=== PATIENT | female | born 1985 | race African-American/Black ===

== ENCOUNTER 2020-05-23 09:30 | Inpatient (IN) ==
[2020-05-23] MEDS ORDERED: ONDANSETRON 4 MG/2 ML VIAL IV STA (09:57)
[2020-05-23] MEDS ORDERED: methylPREDNISolone SOD SUC 125 MG/2 ML VIAL IV STA (09:57)
[2020-05-23] MEDS ORDERED: AZITHROMYCIN INJ 500 MG in SODIUM CHLORIDE 0.9% 250 ML IV STA (09:57)
[2020-05-23] MEDS ORDERED: VANCOMYCIN INJ 1,000 MG in SODIUM CHLORIDE 0.9% 250 ML IV STA (10:26)
[2020-05-23 10:31] LABS: PT Patient Result 10.9 SECS (9.8-11.9); Partial Thromboplastin Time 22.4 SECS (23.9-33.8)
[2020-05-23 10:43] LABS: Alanine Aminotransferase 33 U/L (13-56); Albumin 2.3 G/DL (3.4-5.0); Alkaline Phosphatase 77 U/L (45-117); Aspartate Amino Transferase 65 U/L (0-37); Blood Urea Nitrogen 19 MG/DL (7-18); Calcium 7.8 MG/DL (8.5-10.1); Estimated Glom Filtration Rate 97 ML/MIN; Ferritin 11.1 ng/ml (8-252); Glucose 105 MG/DL (74-106); Osmolality,Calculated 263.7 MOS/KG (273-304); Total Protein 7.2 G/DL (6.4-8.3); Troponin I < 0.015 NG/ML (0.00-0.045)
[2020-05-23 10:55] LABS: Basophils # 0.1 10*3/uL (0.0-0.2); Basophils % 0.3 % (0.0-0.8); Eosinophils % 0.1 % (0.00-10.9); Hematocrit 32.5 VOL% (35.7-47.0); Immature Granulocytes Absolute 1.13 #; Lymphocytes # 2.7 10*3/uL (1.4-4.0); Lymphocytes % 12.1 % (21.3-54.2); Mean Corpuscular HGB Conc 24.9 GM/DL (32-36); Mean Corpuscular Volume 63.6 FL (87-102); Mean Platelet Volume 9.4 FL (9.6-12.0); Monocytes % 6.6 % (1.7-12.7); NRBC # 2.07 10*3/uL; Neutrophils % 75.9 % (38.7-73.9); Platelet Count 303 T/CUMM (130-400); Red Blood Count 5.11 MC/CUMM (3.8-5.5); Red Cell Distribution Width 24.3 % (9.3-17.3); White Blood Count 22.6 T/CUMM (4-12)
[2020-05-23 10:56] LABS: Hemoglobin 8.1 GM/DL (12.0-16.0)
[2020-05-23 11:03] LABS: Band Neutrophils 1 % (0-10); Lymphocytes 5 % (20-55); Myelocytes 1 %; Nucleated Red Blood Cells 14 (0-5); Segmented Neutrophils 91 % (50-85); Total Cells Counted 100
[2020-05-23 11:04] LABS: Hypochromasia 2+; Microcytosis 2+; Polychromasia Slight
[2020-05-23 11:05] LABS: Ovalocytes Few; Platelet Estimate Normal
[2020-05-23] MEDS ORDERED: ONDANSETRON 4 MG/2 ML VIAL IV PRN (11:44)
[2020-05-23] MEDS ORDERED: LACTULOSE 20 GM/30 ML UDCUP PO PRN (11:44)
[2020-05-23 11:50] LABS: Bacteria,Urine Moderate /HPF (Few); Bilirubin,Urine Negative (Negative); Blood, Urine Large mg/dL (Negative); Glucose,Urine (UA) Negative (Negative); Hyaline Casts,Urine 8 /LPF (0-3); Ketones,Urine Negative (Negative); Mucus,Urine Occasional /LPF (Occasional); Nitrite,Urine Negative (Negative); Protein,Urine 100 MG/DL; RBC,Urine 92 /HPF (0-4); Urine Appearance CLOUDY (Clear); Urine Specific Gravity 1.016 (1.001-1.035); Urine Urobilinogen < 2.0 EU/DL (0.2-1.0); WBC,Urine 12 /HPF (0-6)
[2020-05-23 11:54] LABS: Urine Color Yellow (Yellow)
[2020-05-23 11:55] LABS: Barbiturates Screen,Urine Negative (Negative); Benzodiazepines Screen,Urine Negative (Negative); Cannabinoid Screen,Urine Negative (Negative); Opiate Screen,Urine Negative (Negative); Phencyclidine Screen,Urine Negative (Negative)
[2020-05-23] MEDS ORDERED: AZITHROMYCIN INJ 500 MG in SODIUM CHLORIDE 0.9% 250 ML IV SCH (12:00)
[2020-05-23] MEDS ORDERED: cefTRIAXone 1,000 MG in SODIUM CHLORIDE 0.9% 100 ML IV SCH (12:00)
[2020-05-23] MEDS ORDERED: SODIUM CHLORIDE 0.9% 1,000 ML IV SCH (12:00)
[2020-05-23] MEDS ORDERED: POTASSIUM CHLORIDE 20 MEQ TABLET PO PRN (12:33)
[2020-05-23] MEDS ORDERED: MAGNESIUM SULF RIDER 4 GM in PREMIX 1 EACH IV PRN (12:33)
[2020-05-23] MEDS ORDERED: MAGNESIUM SULF RIDER 2 GM in PREMIX 1 EACH IV PRN (12:33)
[2020-05-23 14:36] LABS: ABG Base Excess 0.9 MMOL/L (-2.5-2.5); ABG HCO3 25.1 MMOL/L (20-26); ABG Oxygen Saturation 88.7 % (95-100); ABG PCO2 39.3 MM HG (35-48); ABG PH 7.419 (7.35-7.45); ABG PO2 59.2 MM HG (80-95); ABG TCO2 23.6 MMOL/L (23-27)
[2020-05-23] MEDS: ENOXAPARIN 100 MG/ML SYRINGE SUBCUT SCH (17:33)
[2020-05-23] MEDS: DEXAMETHASONE 10 MG/1 ML VIAL IV SCH (17:49)
[2020-05-23] MEDS ORDERED: cefTRIAXone 1,000 MG in SYRINGE 1 EACH IV SCH (18:00)
[2020-05-23] MEDS: FAMOTIDINE 20 MG TABLET PO SCH (20:51)
[2020-05-23] MEDS: LORazepam 2 MG/1 ML VIAL IV PRN (20:51)
[2020-05-23] MEDS: SODIUM CHLOR 0.9% KCL 40 MEQ 40 MEQ/1,000 ML BAG IV SCH (20:51)
[2020-05-23] MEDS ORDERED: guaiFENesin/CODEINE 5 ML LIQUID PO PRN (22:32)
[2020-05-24] MEDS ORDERED: guaiFENesin/CODEINE 5 ML LIQUID PO PRN
[2020-05-24] MEDS: ENOXAPARIN 100 MG/ML SYRINGE SUBCUT SCH ×2 (01:10→13:15)
[2020-05-24 04:04] LABS: Calcium 7.8 MG/DL (8.5-10.1); Osmolality,Calculated 273.2 MOS/KG (273-304)
[2020-05-24 04:07] LABS: Ferritin 10.8 ng/ml (8-252)
[2020-05-24 04:10] LABS: Basophils # 0.1 10*3/uL (0.0-0.2); Basophils % 0.3 % (0.0-0.8); Hematocrit 32.5 VOL% (35.7-47.0); Hemoglobin 7.9 GM/DL (12.0-16.0); Immature Granulocytes % 5.5 %; Immature Granulocytes Absolute 1.27 #; Lymphocytes # 2.5 10*3/uL (1.4-4.0); Lymphocytes % 10.9 % (21.3-54.2); Mean Corpuscular HGB Conc 24.3 GM/DL (32-36); Mean Corpuscular Volume 65.8 FL (87-102); Mean Platelet Volume 9.5 FL (9.6-12.0); Monocytes % 5.8 % (1.7-12.7); Neutrophils % 77.5 % (38.7-73.9); Platelet Count 404 T/CUMM (130-400); Red Blood Count 4.94 MC/CUMM (3.8-5.5); Red Cell Distribution Width 24.5 % (9.3-17.3); White Blood Count 23.1 T/CUMM (4-12)
[2020-05-24] MEDS: SODIUM CHLOR 0.9% KCL 40 MEQ 40 MEQ/1,000 ML BAG IV SCH ×2 (04:51→08:00)
[2020-05-24 05:53] LABS: Band Neutrophils 2 % (0-10); Lymphocytes 10 % (20-55); Metamyelocytes 1 %; Nucleated Red Blood Cells 7 (0-5); Segmented Neutrophils 82 % (50-85); Total Cells Counted 100
[2020-05-24 05:54] LABS: Acanthocytes Few; Anisocytosis 2+; Hypochromasia 2+; Macrocytosis 2+; Microcytosis Slight; Platelet Estimate Increased
[2020-05-24] MEDS: FAMOTIDINE 20 MG TABLET PO SCH ×2 (09:47→21:18)
[2020-05-24] MEDS: DEXAMETHASONE 10 MG/1 ML VIAL IV SCH (09:47)
[2020-05-24] MEDS: LORazepam 2 MG/1 ML VIAL IV PRN (10:11)
[2020-05-24] MEDS ORDERED: flumazeniL 0.5 MG/5 ML VIAL IV ONE ×2 (10:36→10:37)
[2020-05-24] MEDS ORDERED: SODIUM CHLORIDE 0.9% 1,000 ML IV SCH (12:00)
[2020-05-24] MEDS: FERROUS SULFATE 325 MG TABLET PO SCH ×2 (13:15→21:18)
[2020-05-24] MEDS ORDERED: GLUCAGON 1 MG VIAL IM PRN (13:27)
[2020-05-24] MEDS ORDERED: DEXTROSE 50% 25 GM/50 ML VIAL IV PRN (13:27)
[2020-05-24] MEDS ORDERED: LABETALOL 20 MG/4 ML SYRINGE IV ONE (14:03)
[2020-05-24] MEDS: carvediloL 6.25 MG TABLET PO SCH (14:40)
[2020-05-24] MEDS: AZITHROMYCIN INJ 500 MG in SODIUM CHLORIDE 0.9% 250 ML IV SCH (14:48)
[2020-05-24] MEDS: PIPERACILLIN/TAZOBACTAM 3,375 MG in SODIUM CHLORIDE 0.9% 100 ML IV SCH ×2 (14:59→22:49)
[2020-05-24] MEDS ORDERED: hydrALAZINE 20 MG/1 ML VIAL IV PRN (22:09)
[2020-05-24] MEDS: lisinopriL 20 MG TABLET PO SCH (22:43)
[2020-05-25] MEDS: ENOXAPARIN 100 MG/ML SYRINGE SUBCUT SCH ×2 (00:28→12:27)
[2020-05-25 03:43] LABS: Basophils % 0.2 % (0.0-0.8); Hematocrit 31.9 VOL% (35.7-47.0); Immature Granulocytes % 3.9 %; Immature Granulocytes Absolute 0.76 #; Lymphocytes % 5.4 % (21.3-54.2); Mean Corpuscular HGB Conc 24.1 GM/DL (32-36); Mean Platelet Volume 9.1 FL (9.6-12.0); Monocytes % 8.7 % (1.7-12.7); Neutrophils % 81.8 % (38.7-73.9); Platelet Count 463 T/CUMM (130-400); Red Blood Count 4.83 MC/CUMM (3.8-5.5); Red Cell Distribution Width 24.7 % (9.3-17.3); White Blood Count 19.3 T/CUMM (4-12)
[2020-05-25 04:08] LABS: Calcium 7.8 MG/DL (8.5-10.1); Hemoglobin 7.7 GM/DL (12.0-16.0); Osmolality,Calculated 279.7 MOS/KG (273-304)
[2020-05-25 04:20] LABS: Band Neutrophils 1 % (0-10); Lymphocytes 5 % (20-55); Nucleated Red Blood Cells 13 (0-5); Segmented Neutrophils 90 % (50-85); Total Cells Counted 100
[2020-05-25 04:21] LABS: Anisocytosis 1+; Ovalocytes 1+; Platelet Estimate Normal; Polychromasia 1+
[2020-05-25 04:54] LABS: ABG Base Excess 2.4 MMOL/L (-2.5-2.5); ABG Oxygen Saturation 94.4 % (95-100); ABG PCO2 41.8 MM HG (35-48); ABG PH 7.428 (7.35-7.45); ABG PO2 73.7 MM HG (80-95); ABG TCO2 28.3 MMOL/L (23-27); Allen Test Positive
[2020-05-25] MEDS: lisinopriL 20 MG TABLET PO SCH (08:00)
[2020-05-25] MEDS: PIPERACILLIN/TAZOBACTAM 3,375 MG in SODIUM CHLORIDE 0.9% 100 ML IV SCH ×3 (08:00→23:22)
[2020-05-25] MEDS: FAMOTIDINE 20 MG TABLET PO SCH ×2 (08:15→20:29)
[2020-05-25] MEDS: FERROUS SULFATE 325 MG TABLET PO SCH ×2 (08:15→20:29)
[2020-05-25] MEDS: DEXAMETHASONE 10 MG/1 ML VIAL IV SCH (08:30)
[2020-05-25] MEDS: carvediloL 6.25 MG TABLET PO SCH ×2 (08:30→16:03)
[2020-05-25] MEDS: LOSARTAN 50 MG TABLET PO SCH (10:48)
[2020-05-25] MEDS: AZITHROMYCIN INJ 500 MG in SODIUM CHLORIDE 0.9% 250 ML IV SCH (10:48)
[2020-05-25] MEDS ORDERED: FUROSEMIDE 40 MG/4 ML VIAL IV ONE (11:41)
[2020-05-26] MEDS: ENOXAPARIN 100 MG/ML SYRINGE SUBCUT SCH ×2 (00:12→13:30)
[2020-05-26 04:18] LABS: Ferritin 15.4 ng/ml (8-252)
[2020-05-26 04:37] LABS: ABG Base Excess 4.4 MMOL/L (-2.5-2.5); ABG HCO3 27.9 MMOL/L (20-26); ABG PH 7.445 (7.35-7.45); Allen Test Positive
[2020-05-26 04:40] LABS: ABG PO2 38.7 MM HG (80-95)
[2020-05-26 04:50] LABS: Basophils % 0.1 % (0.0-0.8); Eosinophils % 0.1 % (0.00-10.9); Hemoglobin 8.1 GM/DL (12.0-16.0); Immature Granulocytes % 1.7 %; Immature Granulocytes Absolute 0.27 #; Lymphocytes # 1.1 10*3/uL (1.4-4.0); Lymphocytes % 6.9 % (21.3-54.2); Mean Corpuscular HGB Conc 24.5 GM/DL (32-36); Mean Corpuscular Volume 64.8 FL (87-102); Mean Platelet Volume 9.3 FL (9.6-12.0); Monocytes % 8.3 % (1.7-12.7); NRBC # 0.55 10*3/uL; Neutrophils % 82.9 % (38.7-73.9); Platelet Count 481 T/CUMM (130-400); Red Blood Count 5.09 MC/CUMM (3.8-5.5); Red Cell Distribution Width 25.1 % (9.3-17.3); White Blood Count 15.9 T/CUMM (4-12)
[2020-05-26 04:51] LABS: Osmolality,Calculated 280.5 MOS/KG (273-304)
[2020-05-26 04:56] LABS: Hypochromasia 1+; Microcytosis Slight; Ovalocytes Slight; Platelet Estimate Adequate
[2020-05-26 05:41] LABS: ABG Base Excess 3.5 MMOL/L (-2.5-2.5); ABG HCO3 27.4 MMOL/L (20-26); ABG Oxygen Saturation 89.1 % (95-100); ABG PCO2 39.5 MM HG (35-48); ABG PH 7.452 (7.35-7.45); ABG PO2 58.1 MM HG (80-95); ABG TCO2 25.7 MMOL/L (23-27)
[2020-05-26] MEDS: PIPERACILLIN/TAZOBACTAM 3,375 MG in SODIUM CHLORIDE 0.9% 100 ML IV SCH ×3 (07:31→22:30)
[2020-05-26] MEDS: carvediloL 6.25 MG TABLET PO SCH ×2 (08:32→16:40)
[2020-05-26] MEDS: FAMOTIDINE 20 MG TABLET PO SCH ×2 (08:32→20:30)
[2020-05-26] MEDS: LOSARTAN 50 MG TABLET PO SCH (08:32)
[2020-05-26] MEDS: FERROUS SULFATE 325 MG TABLET PO SCH ×2 (08:34→20:30)
[2020-05-26] MEDS: DEXAMETHASONE 10 MG/1 ML VIAL IV SCH (08:35)
[2020-05-26] MEDS: AZITHROMYCIN INJ 500 MG in SODIUM CHLORIDE 0.9% 250 ML IV SCH (12:12)
[2020-05-26] MEDS: ACETAMINOPHEN 325 MG TABLET PO PRN ×2 (16:40→20:30)
[2020-05-26] MEDS ORDERED: FUROSEMIDE 40 MG/4 ML VIAL IV ONE (16:45)
[2020-05-27] MEDS: ENOXAPARIN 100 MG/ML SYRINGE SUBCUT SCH ×2 (02:05→13:21)
[2020-05-27 03:42] LABS: Basophils % 0.1 % (0.0-0.8); Eosinophils % 0.2 % (0.00-10.9); Immature Granulocytes % 1.6 %; Immature Granulocytes Absolute 0.22 #; Lymphocytes # 1.2 10*3/uL (1.4-4.0); Lymphocytes % 8.4 % (21.3-54.2); Mean Corpuscular HGB Conc 22.8 GM/DL (32-36); Mean Corpuscular Volume 68.2 FL (87-102); Mean Platelet Volume 9.2 FL (9.6-12.0); Monocytes % 7.9 % (1.7-12.7); NRBC # 0.27 10*3/uL; Neutrophils % 81.8 % (38.7-73.9); Platelet Count 489 T/CUMM (130-400); Red Blood Count 5.09 MC/CUMM (3.8-5.5); Red Cell Distribution Width 25.2 % (9.3-17.3); White Blood Count 13.9 T/CUMM (4-12)
[2020-05-27 04:01] LABS: Calcium 8.1 MG/DL (8.5-10.1); Osmolality,Calculated 274.8 MOS/KG (273-304)
[2020-05-27 04:03] LABS: ABG Base Excess 0.7 MMOL/L (-2.5-2.5); ABG HCO3 24.8 MMOL/L (20-26); ABG PCO2 37.9 MM HG (35-48); ABG PH 7.433 (7.35-7.45); ABG PO2 69.2 MM HG (80-95); ABG TCO2 25.9 MMOL/L (23-27)
[2020-05-27 04:05] LABS: ABG Oxygen Saturation 94.4 % (95-100)
[2020-05-27 04:24] LABS: Hematocrit 33.3 VOL% (35.7-47.0); Hemoglobin 7.9 GM/DL (12.0-16.0)
[2020-05-27 04:55] LABS: Hypochromasia 2+; Microcytosis Slight; Ovalocytes Slight; Platelet Estimate Adequate
[2020-05-27] MEDS: PIPERACILLIN/TAZOBACTAM 3,375 MG in SODIUM CHLORIDE 0.9% 100 ML IV SCH (08:59)
[2020-05-27] MEDS: DEXAMETHASONE 10 MG/1 ML VIAL IV SCH (09:00)
[2020-05-27] MEDS ORDERED: FUROSEMIDE 40 MG/4 ML VIAL IV ONE (09:00)
[2020-05-27] MEDS: FAMOTIDINE 20 MG TABLET PO SCH ×2 (09:01→20:27)
[2020-05-27] MEDS: carvediloL 6.25 MG TABLET PO SCH ×2 (09:01→17:10)
[2020-05-27] MEDS: FERROUS SULFATE 325 MG TABLET PO SCH ×2 (09:01→20:27)
[2020-05-27] MEDS: LOSARTAN 50 MG TABLET PO SCH (09:01)
[2020-05-27] MEDS ORDERED: cefTRIAXone 1,000 MG in SYRINGE 1 EACH IV SCH (10:00)
[2020-05-27] MEDS: cefTRIAXone 1,000 MG in SYRINGE 1 EACH IV SCH (10:15)
[2020-05-27] MEDS ORDERED: VANCOMYCIN INJ 2,500 MG in SODIUM CHLORIDE 0.9% 500 ML IV ONE (11:00)
[2020-05-27] MEDS: ACETAMINOPHEN 325 MG TABLET PO PRN (11:13)
[2020-05-27] MEDS: AZITHROMYCIN INJ 500 MG in SODIUM CHLORIDE 0.9% 250 ML IV SCH (13:20)
[2020-05-28] MEDS ORDERED: VANCOMYCIN INJ 2,000 MG in SODIUM CHLORIDE 0.9% 500 ML IV SCH
[2020-05-28] MEDS: ENOXAPARIN 100 MG/ML SYRINGE SUBCUT SCH ×2 (00:45→12:34)
[2020-05-28 06:51] LABS: Calcium 8.1 MG/DL (8.5-10.1); Osmolality,Calculated 280.4 MOS/KG (273-304)
[2020-05-28 06:55] LABS: Basophils % 0.1 % (0.0-0.8); Eosinophils # 0.1 10*3/uL (0.0-0.87); Eosinophils % 0.6 % (0.00-10.9); Hematocrit 30.8 VOL% (35.7-47.0); Hemoglobin 7.5 GM/DL (12.0-16.0); Immature Granulocytes % 1.3 %; Lymphocytes # 1.2 10*3/uL (1.4-4.0); Lymphocytes % 7.4 % (21.3-54.2); Mean Corpuscular HGB Conc 24.4 GM/DL (32-36); Mean Corpuscular Volume 67.2 FL (87-102); Mean Platelet Volume 9.2 FL (9.6-12.0); Monocytes % 9.3 % (1.7-12.7); NRBC # 0.08 10*3/uL; Neutrophils % 81.3 % (38.7-73.9); Platelet Count 624 T/CUMM (130-400); Red Blood Count 4.58 MC/CUMM (3.8-5.5); Red Cell Distribution Width 25.3 % (9.3-17.3)
[2020-05-28 07:00] LABS: Hypochromasia 2+; Microcytosis 1+; Platelet Estimate Adequate
[2020-05-28] MEDS: carvediloL 6.25 MG TABLET PO SCH (08:24)
[2020-05-28] MEDS: FAMOTIDINE 20 MG TABLET PO SCH ×2 (08:24→21:00)
[2020-05-28] MEDS: LOSARTAN 50 MG TABLET PO SCH (08:24)
[2020-05-28] MEDS: DEXAMETHASONE 10 MG/1 ML VIAL IV SCH (08:25)
[2020-05-28] MEDS: FERROUS SULFATE 325 MG TABLET PO SCH ×2 (08:25→21:00)
[2020-05-28] MEDS: cefTRIAXone 1,000 MG in SYRINGE 1 EACH IV SCH (10:33)
[2020-05-28] MEDS: carvediloL 12.5 MG TABLET PO SCH (16:50)
[2020-05-29] MEDS: ENOXAPARIN 100 MG/ML SYRINGE SUBCUT SCH ×2 (00:30→13:13)
[2020-05-29 04:04] LABS: Immature Granulocytes % 1.5 %; Immature Granulocytes Absolute 0.23 #; Lymphocytes # 0.8 10*3/uL (1.4-4.0); Lymphocytes % 5.1 % (21.3-54.2); Mean Corpuscular HGB Conc 23.2 GM/DL (32-36); Mean Corpuscular Volume 69.4 FL (87-102); Mean Platelet Volume 8.6 FL (9.6-12.0); Monocytes % 8.7 % (1.7-12.7); NRBC # 0.07 10*3/uL; Neutrophils % 84.7 % (38.7-73.9); Platelet Count 674 T/CUMM (130-400); Red Blood Count 4.71 MC/CUMM (3.8-5.5); Red Cell Distribution Width 25.2 % (9.3-17.3); White Blood Count 15.4 T/CUMM (4-12)
[2020-05-29 04:25] LABS: Calcium 8.2 MG/DL (8.5-10.1); Osmolality,Calculated 282.4 MOS/KG (273-304)
[2020-05-29 04:48] LABS: Hematocrit 32.2 VOL% (35.7-47.0); Hemoglobin 7.7 GM/DL (12.0-16.0)
[2020-05-29 04:54] LABS: Hypochromasia 2+; Platelet Estimate Adequate
[2020-05-29 04:55] LABS: Microcytosis 1+
[2020-05-29 05:11] LABS: ABG Base Excess 1.9 MMOL/L (-2.5-2.5); ABG HCO3 25.9 MMOL/L (20-26); ABG Oxygen Saturation 83.2 % (95-100); ABG PCO2 42.9 MM HG (35-48); ABG PH 7.404 (7.35-7.45); ABG PO2 52.2 MM HG (80-95); ABG TCO2 25.1 MMOL/L (23-27); Allen Test Positive; Pt O2 Delivery Device Other
[2020-05-29] MEDS ORDERED: FUROSEMIDE 40 MG/4 ML VIAL IV ONE (07:36)
[2020-05-29] MEDS: LOSARTAN 50 MG TABLET PO SCH (08:16)
[2020-05-29] MEDS: ZINC GLUCONATE 50 MG TABLET PO SCH (08:16)
[2020-05-29] MEDS: FERROUS SULFATE 325 MG TABLET PO SCH ×2 (08:16→20:22)
[2020-05-29] MEDS: carvediloL 12.5 MG TABLET PO SCH ×2 (08:16→16:52)
[2020-05-29] MEDS: DEXAMETHASONE 10 MG/1 ML VIAL IV SCH (08:16)
[2020-05-29] MEDS: FAMOTIDINE 20 MG TABLET PO SCH ×2 (08:16→20:22)
[2020-05-29] MEDS: cefTRIAXone 1,000 MG in SYRINGE 1 EACH IV SCH (09:24)
[2020-05-29] MEDS ORDERED: SODIUM CHLORIDE 0.9% 1,000 ML IV PRN (13:00)
[2020-05-29] MEDS: ALBUTEROL INHALER 18 GM INH SCH ×2 (13:14→18:38)
[2020-05-30] MEDS: ALBUTEROL INHALER 18 GM INH SCH ×4 (00:30→21:20)
[2020-05-30] MEDS: ENOXAPARIN 100 MG/ML SYRINGE SUBCUT SCH ×2 (00:30→13:14)
[2020-05-30 04:28] LABS: ABG Base Excess 2.3 MMOL/L (-2.5-2.5); ABG HCO3 26.3 MMOL/L (20-26); ABG Oxygen Saturation 80.6 % (95-100); ABG PH 7.388 (7.35-7.45); ABG PO2 50.1 MM HG (80-95); ABG TCO2 26.1 MMOL/L (23-27); Allen Test Positive; Pt O2 Delivery Device Other
[2020-05-30 04:59] LABS: Basophils % 0.1 % (0.0-0.8); Eosinophils % 0.1 % (0.00-10.9); Hematocrit 32.5 VOL% (35.7-47.0); Immature Granulocytes Absolute 0.15 #; Lymphocytes # 0.8 10*3/uL (1.4-4.0); Lymphocytes % 5.3 % (21.3-54.2); Mean Corpuscular HGB Conc 23.1 GM/DL (32-36); Mean Corpuscular Volume 69.7 FL (87-102); Mean Platelet Volume 8.6 FL (9.6-12.0); Monocytes % 8.7 % (1.7-12.7); NRBC # 0.04 10*3/uL; Neutrophils % 84.8 % (38.7-73.9); Platelet Count 690 T/CUMM (130-400); Red Blood Count 4.66 MC/CUMM (3.8-5.5); Red Cell Distribution Width 25.8 % (9.3-17.3); White Blood Count 15.1 T/CUMM (4-12)
[2020-05-30 05:01] LABS: Hemoglobin 7.5 GM/DL (12.0-16.0)
[2020-05-30 05:06] LABS: Calcium 8.4 MG/DL (8.5-10.1); Osmolality,Calculated 285.1 MOS/KG (273-304)
[2020-05-30 05:08] LABS: Hypochromasia 2+; Microcytosis Slight; Ovalocytes Slight; Platelet Estimate Adequate
[2020-05-30] MEDS: DEXAMETHASONE 10 MG/1 ML VIAL IV SCH (09:28)
[2020-05-30] MEDS: carvediloL 12.5 MG TABLET PO SCH ×2 (09:28→16:07)
[2020-05-30] MEDS: LOSARTAN 50 MG TABLET PO SCH (09:28)
[2020-05-30] MEDS: cefTRIAXone 1,000 MG in SYRINGE 1 EACH IV SCH (09:29)
[2020-05-30] MEDS: FAMOTIDINE 20 MG TABLET PO SCH ×2 (09:30→21:21)
[2020-05-30] MEDS: FERROUS SULFATE 325 MG TABLET PO SCH ×2 (09:30→21:21)
[2020-05-30] MEDS ORDERED: CLORAZEPATE 3.75 MG TABLET PO ONE (10:18)
[2020-05-30 14:00] LABS: Albumin 2.3 G/DL (3.4-5.0); Bilirubin,Direct 0.1 MG/DL (0.0-0.20); Bilirubin,Indirect 0.3 MG/DL (0.0-1.0); Bilirubin,Total 0.4 MG/DL (0.2-1.0); Total Protein 7.3 G/DL (6.4-8.3)
[2020-05-30 18:37] VITALS: BP 128/71
[2020-05-31] MEDS: ENOXAPARIN 100 MG/ML SYRINGE SUBCUT SCH ×2 (00:32→14:29)
[2020-05-31] MEDS: ALBUTEROL INHALER 18 GM INH SCH ×3 (00:32→12:21)
[2020-05-31 04:29] LABS: ABG Base Excess 0.3 MMOL/L (-2.5-2.5); ABG HCO3 25.4 MMOL/L (20-26); ABG Oxygen Saturation 79.5 % (95-100); ABG PH 7.389 (7.35-7.45); ABG PO2 47.7 MM HG (80-95); ABG TCO2 26.7 MMOL/L (23-27); Allen Test Positive; Pt O2 Delivery Device BIPAP
[2020-05-31 05:03] LABS: Calcium 9.1 MG/DL (8.5-10.1); Osmolality,Calculated 282.4 MOS/KG (273-304)
[2020-05-31 05:27] LABS: Basophils % 0.1 % (0.0-0.8); Eosinophils % 0.1 % (0.00-10.9); Hematocrit 34.6 VOL% (35.7-47.0); Immature Granulocytes % 1.4 %; Immature Granulocytes Absolute 0.26 #; Lymphocytes # 0.8 10*3/uL (1.4-4.0); Mean Corpuscular HGB Conc 23.1 GM/DL (32-36); Mean Corpuscular Volume 70.3 FL (87-102); Mean Platelet Volume 8.9 FL (9.6-12.0); Monocytes % 8.5 % (1.7-12.7); NRBC # 0.06 10*3/uL; Neutrophils % 85.9 % (38.7-73.9); Platelet Count 729 T/CUMM (130-400); Red Blood Count 4.92 MC/CUMM (3.8-5.5); Red Cell Distribution Width 26.1 % (9.3-17.3); White Blood Count 19.2 T/CUMM (4-12)
[2020-05-31 06:19] LABS: Hypochromasia 2+; Lymphocytes 3 % (20-55); Myelocytes 1 %; Segmented Neutrophils 85 % (50-85); Total Cells Counted 100
[2020-05-31 06:20] LABS: Anisocytosis 1+; Microcytosis 1+; Ovalocytes Slight; Polychromasia Slight; Target Cells Slight
[2020-05-31] MEDS ORDERED: ETOMIDATE 20 MG/10 ML VIAL IV ONE ×2 (07:04→07:05)
[2020-05-31] MEDS ORDERED: SUCCINYLCHOLINE 200 MG/10 ML VIAL ONE (07:05)
[2020-05-31] MEDS ORDERED: SUCCINYLCHOLINE 200 MG/10 ML VIAL IV ONE (07:12)
[2020-05-31] MEDS ORDERED: MIDAZOLAM 100 MG in SODIUM CHLORIDE 0.9% 80 ML IV PRN (07:15)
[2020-05-31] MEDS ORDERED: SODIUM BICARBONATE 50 MEQ/50 ML SYRINGE IV ONE ×2 (07:17)
[2020-05-31] MEDS ORDERED: EPINEPHrine 1 MG/10 ML SYRINGE ONE ×2 (07:17)
[2020-05-31 07:48] LABS: ABG Base Excess -6.1 MMOL/L (-2.5-2.5); ABG HCO3 18.7 MMOL/L (20-26); ABG Oxygen Saturation 38.4 % (95-100); ABG TCO2 23.3 MMOL/L (23-27)
[2020-05-31 07:52] LABS: ABG PCO2 71.7 MM HG (35-48); ABG PH 7.129 (7.35-7.45); ABG PO2 35.3 MM HG (80-95)
[2020-05-31] MEDS ORDERED: SODIUM BICARBONATE 50 MEQ/50 ML VIAL IV ONE (07:52)
[2020-05-31] MEDS ORDERED: ROCURONIUM 100 MG/10 ML VIAL IV ONE (07:54)
[2020-05-31] MEDS ORDERED: ROCURONIUM 500 MG in SODIUM CHLORIDE 0.9% 500 ML IV PRN (07:54)
[2020-05-31] MEDS ORDERED: NOREPINEPHRINE 4 MG/4 ML VIAL IV ONE (07:57)
[2020-05-31] MEDS: PHENYLEPHRINE DRIP 40 MG/250 ML PREMIX IV PRN ×2 (08:00→10:20)
[2020-05-31] MEDS: NOREPINEPHRINE 8 MG in SODIUM CHLORIDE 0.9% 242 ML IV PRN ×2 (08:01→11:35)
[2020-05-31] MEDS: carvediloL 12.5 MG TABLET PO SCH (09:44)
[2020-05-31] MEDS: FUROSEMIDE 100 MG/10 ML VIAL IV SCH ×2 (10:02→11:09)
[2020-05-31] MEDS: ZINC GLUCONATE 50 MG TABLET PO SCH (11:02)
[2020-05-31] MEDS: FERROUS SULFATE 325 MG TABLET PO SCH (11:03)
[2020-05-31] MEDS: LOSARTAN 50 MG TABLET PO SCH (11:03)
[2020-05-31] MEDS: FAMOTIDINE 20 MG TABLET PO SCH (11:03)
[2020-05-31] MEDS: DEXAMETHASONE 10 MG/1 ML VIAL IV SCH (11:09)
[2020-05-31] MEDS: cefTRIAXone 1,000 MG in SYRINGE 1 EACH IV SCH (11:10)
== END 2020-05-31 13:37 | disposition expired | DRG 208 ==
LOC: EDUNIT# → EDBD → N.ED 09:30 → N.EDINP 11:44 → SUATTDRO 11:44 → N.EDINP 16:00 → N.CC 16:58
PROVIDERS: ADMIT Internal Medicine; ATTEND Family Medicine